=== PATIENT | male | born 1960 | race Caucasian/White ===

== ENCOUNTER → 2019-02-08 | Day surgery (SDC) | payer OTHER ==
[~2019-02-08] MED LIST: MULTI VITAMIN1 EACH PO; NAPROXEN250 MG PO; VALACYCLOVIR1000 MG PO; VIAGRA50 MG PO
--- NOTE | ~2019-02-08 | PROC ---
[address] [place] [address] PROCEDURE REPORT Name: JOSE ANGEL FUNEZ Room: [facility]#: [id number] Admission: 02/08/19 Attend Phys: Lavon Amin MD Discharge: Date of : 60 Report #: [id number] THIS REPORT FOR: //name// For GI report, please see the Provation report in Per[employer] 7 content. By: [address] [place], [place] [address]cal Records Staff JODY /JORGE ALBERTO
[2019-02-08 10:32] LABS: HEMATOCRIT 45.1 % (42.0-52.0); MCH 33.4 pg (26.0-34.0); MCHC 35.6 g/dL (28.0-37.0); MCV 93.9 fL (80.0-100.0); RBC 4.8 mil/uL (4.50-6.00); RDW-CV 13.7 % (10.5-14.5); WBC 6.7 thou/uL (4.0-11.0)
[2019-02-08 10:37] LABS: CALCIUM 8.8 mg/dL (8.5-10.1); CREATININE 1.1 mg/dL (0.6-1.3); POTASSIUM 4.4 mmol/L (3.5-5.1)
--- NOTE | 2019-02-08 16:01 | EKG ---
[place] [address] ELECTROCARDIOGRAM REPORT Name: DEE DEEJOSE ANGEL LINN Bekah Room: [facility]#: [id number] Admission: 02/08/19 Attend Phys: Lavon Amin MD Discharge: Date of : 60 Report #: [id number] THIS REPORT FOR: //name// [facility] Test Date: 2019-02-08 Test Time: 09:48:56 Pat Name: JOSE ANGEL FUNEZ Department: Room: Gender: Sap Consultant: : 1960 Requested By: Lavon Amin Order Number: [id number] Jose L MD: Cricket Girard Measurements Intervals [place] Rate: 78 P: 46 WA: 142 QRS: -35 QRSD: 95 T: 29 QT: 436 QTc: 497 Interpretive Statements Sinus rhythm Inferior infarct, old No previous ECG available for comparison Electronically Signed On 02-08-2019 16:00:58 CDT by Cricket Girard [email or web address] <ELECTRONICALLY SIGNED> By: Cricket Girard MD, [facility] 02/08/19 1600 0948 09 Cricket Girard MD, FACC /EPI
--- NOTE | 2019-02-09 17:07 | PATH ---
[facility] [address] [place] [address] PATHOLOGY RPT PROCEDURE Name: DEE DEEJOSE ANGEL Godfrey [id number] Admission: 02/08/19 Date of : 60 Discharge: Report #: [id number] Path Case #: [id number] [facility] Accession Number: [id number] . 01 Material submitted: . PART A: GASTRIC BIOPSY PART B: DUODENAL BIOPSY . 01 Clinical history: . Dysphagia, bloating, GERD . 02 Diagnosis: A. 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 . B. Duodenal biopsy: - Normal duodenal mucosa. (MICHAEL/db; 02/09/2019) LBQ/02/09/2019 . 02 Comment: Special stain on A: H. pylori immuno . 02 Electronically signed: . Maurice Stearns MD, Pathologist NPI- [id number] . 01 Gross description: . A. Received in formalin labeled "Jose Angel Funez, gastric biopsy," are 2 segments of ledezma soft tissue measuring 1.2 x 0.2 x 0.2 cm in aggregate dimensions and ranging from 0.5 to 0.7 cm in maximum dimension. The specimen is submitted entirely in cassette A1. . B. Received in formalin labeled "Jose Angel Funez, duodenal biopsy," are 3 segments of ledezma soft tissue measuring 0.9 x 0.5 x 0.2 cm in aggregate dimensions and ranging from 0.2 to 0.5 cm in maximum dimension. The specimen is submitted entirely in cassette B1. (TSD; 02/08/2019) TOB/TOB . 02 Pathologist provided ICD-10: K29.50, K31.9 . 02 CPT . 853951, 333951, [id number] Specimen Comment: A courtesy copy of this report has been sent to Specimen Comment: [phone], [place] [address] PATHOLOGY RPT PROCEDURE Name: JOSE ANGEL FUNEZ Room: [facility]#: [id number] Admission: 02/08/19 Date of : 60 Discharge: Report #: [id number] Path Case #: [id number] Specimen Comment: Report sent to / DR JACOBSON Performed at: 01 [facility] [address], [place], [place] [id number] MD Manas Del Rosario MD Phone: [phone] Performed at: 02 [facility] [address], [place], [place] [id number] MD Maurice Stearns MD Phone: [phone]
== END | disposition home or self-care (01) ==
LOC: M.SUR 09:29
PROVIDERS: Internal Medicine Gastroenterology
DX: K29.50 Unspecified chronic gastritis without bleeding (principal); K31.9 Disease of stomach and duodenum, unspecified; K31.89 Other diseases of stomach and duodenum; E11.9 Type 2 diabetes mellitus without complications; Z88.8 Allergy status to other drugs, medicaments and biological substances; Z79.899 Other long term (current) drug therapy